=== PATIENT | male | born 1990 | race Caucasian/White ===

== ENCOUNTER 2022-12-16 21:19 | Emergency (ER) | payer SELFPAY ==
[~2022-12-16] VITALS: Ht 167.6 cm; Wt 71.7 kg
[2022-12-16] MEDS ORDERED: IV NS 1000 ML 1,000 ML IV ONE (23:45)
[2022-12-16] MEDS ORDERED: METOCLOPRAMIDE HCL 10 MG/2 ML VIAL IV ONE (23:45)
[2022-12-16] MEDS ORDERED: diphenhydrAMINE 50 MG/1 ML VIAL IV ONE (23:45)
[2022-12-16] MEDS ORDERED: KETOROLAC TROMETHAMINE 30 MG INJ IVP ONE (23:45)
[2022-12-16] MEDS ORDERED: diphenhydrAMINE 50 MG/1 ML VIAL ONE (23:53)
[2022-12-16] MEDS ORDERED: KETOROLAC TROMETHAMINE 30 MG INJ ONE (23:54)
[2022-12-16] MEDS ORDERED: METOCLOPRAMIDE HCL 10 MG/2 ML VIAL ONE (23:54)
[2022-12-17 00:13] LABS: MAGNESIUM 1.8 mg/dL (1.8-2.4); POTASSIUM 3.6 mmol/L (3.5-5.1)
[2022-12-17] MEDS ORDERED: PROC10TA29 PO (01:14)
[2022-12-17] MEDS ORDERED: SUMA100T16 PO (01:14)
[2022-12-17] MEDS ORDERED: NAPR500T6 PO (01:14)
[2022-12-17 01:48] VITALS: BP 122/76; TEMP 97.9; O2SAT 100
== END 2022-12-17 01:49 | disposition home or self-care (01) ==
LOC: ER 21:28
DX: G43.909 Migraine, unspecified, not intractable, without status migrainosus (principal); Z79.899 Other long term (current) drug therapy
CPT/HCPCS: 99284; 80048; 83735; 36415; 96374; 96375; 96361; J1200; J1885; J2765; J7040; A4663